=== PATIENT | female | born 1955 | race African-American/Black ===

== ENCOUNTER 2024-08-28 17:39 | Inpatient (IN) | payer OTHER ==
[~2024-08-28] VITALS: Ht 157.5 cm; Wt 85.3 kg
--- NOTE | 2024-08-28 18:04 | ED.PDOC ---
History of Present Illness HPI Comments 68 y/o F, Hx of asthma, CKF, COPD, preDM, HTN, and obesity, is BIBA for c/o shortness of breath, cough, fever, chills, and generalized bodyaches, today. Patient endorses on having difficulty breathing with associated clear phlegm productive cough for the past 2 days, with additional onset of remaining sympto ms, today. Per EMS report, patient was given breathing Tx (5mg albuterol and 0.5mg atrovent) en route, with moderate improvement. At time of arrival to ED and assessment, patient was found with a temperature of 101.0F. Patient reports no additional relevant or pertinent Hx, such as travel, sick contact, or Hx of CHF. She denies having any chest pain, dizziness, headaches, urinary symptoms, hemoptysis, or other associated symptoms or modifiers at this time. 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) Family History Family History: Unknown Social History Smoker: Non-Smoker Alcohol: Denies ETOH Use Drugs: Denies Drug Use Lives In: Home Constitutional: reports: chills, fever; denies: diaphoresis, fatigue, malaise, sweats, weakness, others EENTM: denies: blurred vision, double vision, ear bleeding, ear discharge, ear drainage, ear pain, ear ringing, eye pain, eye redness, hearing loss, mouth pain, mouth swelling, nasal discharge, nose bleeding, nose congestion, nose pain, photophobia, tearing, throat pain, throat swelling, voice changes, others Respiratory: reports: cough, shortness of breath; denies: hemoptysis, orthopnea, SOB at rest, SOB with excertion, stridor, wheezing, others Cardiovascular: denies: chest pain, dizzy spells, diaphoresis, Dyspnea on exertion, edema, irregular heart beat, left arm pain, lightheadedness, palpitations, PND, syncope, others Gastrointestinal: denies: abdomen distended, abdominal pain, blood streaked bowels, constipated, diarrhea, dysphagia, difficulty swallowing, hematemesis, melena, nausea, poor appetite, poor fluid intake, rectal bleeding, rectal pain, vomiting, others Genitourinary: denies: abnormal vagina bleeding, burning, dyspareunia, dysuria, flank pain, frequency, hematuria, incontinence, pain, , vagina discharge, urgency, others Neurological: denies: dizziness, fainting, headache, left sided numbness, left sided weakness, numbness, paresthesia, pre-existing deficit, right sided numbness, right sided weakness, seizure, speech problems, tingling, tremors, weakness, others Musculoskeletal: reports: others (generalized bodyaches ); denies: back pain, gout, joint pain, joint swelling, muscle pain, muscle stiffness, neck pain Integumetry: denies: bruises, change in color, change in hair/nails, dryness, laceration, lesions, lumps, rash, wounds, others Allergic/Immunocompromised: denies: Difficulty Healing, Frequent Infections, Hives, Itching, others Hematologic/Lymphatic: denies: anemia, blood clots, easy bleeding, easy bruising, swollen glands, others Endocrine: denies: excessive hunger, excessive sweating, excessive thirst, excessive urination, flushing, intolerance to cold, intolerance to heat, unexplained weight gain, unexplained weight loss, others Psychiatric: denies: anxiety, bipolar disorder, depression, hopeless, panic disorder, schizophrenia, sleepless, suicidal, others All Other Systems: Reviewed and Negative Physical Exam General Appearance: Moderate Distress HEENT: Normal ENT Inspection, Pharynx Normal, TMs Normal Neck: Full Range of Motion, Non-Tender, Normal, Normal Inspection Respiratory: Chest Non-Tender, Decreased Breath Sounds, No Accessory Muscle Use, Respiratory Distress, Wheezing Cardiovascular: No Edema, No JVD, No Murmur, No Gallop, Normal Peripheral Pulses, Regular Rate/Rhythm Breast Exam: Deferred Gastrointestinal: No Organomegaly, Non Tender, No Pulsatile Mass, Normal Bowel Sounds, Soft Genitalia: Deferred Pelvic: Deferred Rectal: Deferred Extremities: No calf tenderness, Normal capillary refill, Normal inspection, Normal range of motion, Non-tender, No pedal edema Musculoskeletal : Apperance: Normal Neurologic: Alert, hyster machine operator II-XII nml as Tested, No Motor Deficits, Normal Affect, Normal Mood, No Sensory Deficits Cerebellar Function: Normal Reflexes: Normal Skin: Dry, Normal Color, Warm Lymphatic: No Adenopathy Was a procedure done? Was a procedure done?: No EKG EKG : Pulse Rate (adult): 88 Humphreys: Normal Cardiac Rhythm: NSR Block: None Hypertrophy: None ST: Normal Differential Dx Considerations may include: COPD exacerbation, PE, [place], PNA, covid19, influenza, URI, viral syndrome, pleural effusions X-Ray, Labs, Meds, VS Vital Signs Date Time Temp Pulse Resp B/P (MAP) Pulse Ox O2 Delivery O2 Flow Rate FiO2 08/28/24 19:42 98.7 08/28/24 18:42 101.3 08/28/24 18:28 17 98 Nasal Cannula* 6 44 08/28/24 18:05 18 98 Cool Aerosol 8 N/A 08/28/24 18:04 88 08/28/24 17:43 88 08/28/24 17:39 101.0 108 28 140/80 (100) 98 Lab Test 08/28/24 19:15 08/28/24 18:30 08/28/24 18:05 Range/Units Troponin I High Sensitivity Pending 14 </=34 ng/L Influenza Type A Antigen Negative Negative Influenza Type B Antigen Negative Negative SARS-CoV-2 Antigen (Rapid) Negative NEGATIVE White Blood Count 8.2 4.4-10.8 10^3/uL Red Blood Count 4.33 4.0-5.20 10^6/uL Hemoglobin 14.3 12.2-16.2 g/dL Hematocrit 41.6 36.0-46.0 % Mean Corpuscular Volume 96.1 80.0-100.0 fL Mean Corpuscular Hemoglobin 32.9 H 28.0-32.0 pg Mean Corpuscular Hemoglobin Concent 34.2 32.0-36.0 g/dL Red Cell Distribution Width 13.0 11.8-14.3 % Platelet Count 149 140-450 10^3/uL Mean Platelet Volume 8.3 6.9-10.8 fL Neutrophils (%) (Auto) 87.7 H 37.0-80.0 % Lymphocytes (%) (Auto) 5.5 L 10.0-50.0 % Monocytes (%) (Auto) 6.5 0.0-12.0 % Eosinophils (%) (Auto) 0.0 0.0-7.0 % Basophils (%) (Auto) 0.3 0.0-2.0 % Neutrophils # (Auto) 7.1 1.6-8.6 10 ^3/uL Lymphocytes # (Auto) 0.4 0.4-5.4 10 ^3/uL Monocytes # (Auto) 0.5 0-1.3 10 ^3/uL Eosinophils # (Auto) 0 0-0.8 10 ^3/uL Basophils # (Auto) 0 0-0.2 10 ^3/uL Nucleated Red Blood Cells 0.0 % Sodium Level 133 L 136-145 mmol/L Potassium Level 4.2 3.5-5.1 mmol/L Chloride Level 100 98-107 mmol/L Carbon Dioxide Level 28 20-31 mmol/L Anion Gap 5 5-15 Blood Urea Nitrogen 10 9-23 mg/dL Creatinine 0.85 0.550-1.02 mg/dL Glomerular Filtration Rate Calc 75 >90 mL/min BUN/Creatinine Ratio 11.8 10.0-20.0 Serum Glucose 187 H 74-106 mg/dL Lactic Acid Level 1.7 0.4-2.0 mmol/L Calcium Level 9.8 8.7-10.4 mg/dL B-Type Natriuretic Peptide 58.63 0-100 pg/mL Current Medications Medications (Trade) Dose Ordered Sig/Cathy Route Start Time Stop Time Status Last Admin Methylprednisolone Sodium Succinate (Solu Medrol) 125 mg ONCE ONCE IV 08/28/24 18:00 08/28/24 18:01 TN 08/28/24 18:25 Ipratropium [place] (Atrovent Medneb) 1 mg ONCE ONCE N 08/28/24 18:00 08/28/24 18:01 TN 08/28/24 18:05 Albuterol (Ventolin Medneb) 10 mg ONCE ONCE N 08/28/24 18:00 08/28/24 18:01 TN 08/28/24 18:05 Acetaminophen (Tylenol Tablet) 650 mg ONCE ONCE PO 08/28/24 18:45 08/28/24 18:46 TN 08/28/24 18:42 IV Hep-Lock was established. The patient was given Solu-Medrol 125 mg IV push The patient was given a continuous breathing treatment of albuterol and Atrovent The patient was given acetaminophen 650 mg by mouth The patient's CBC and chemistry panel are within normal limits The influenza a is negative The influenza B is negative The COVID test is negative The 1st troponin level is negative The patient continues to have some respiratory distress We are going to admit the patient with a diagnosis of acute COPD exacerbation and respiratory failure We will continue to monitor the patient's respiratory status and give med ne bulizers as needed. The patient will remain on nasal cannula as the oxygen saturation is only 98% as the patient is on the nasal cannula Images Reviewed?: Images reviewed and evaluated by me Time of 1ST Reevaluation: 18:20 Reevaluation 1ST: Unchanged Patient Education/Counseling: Diagnosis, Treatment, Prognosis Family Education/Counseling: No Family Present Departure 1 Departure Time of Disposition: 19:58 Impression: Primary Impression: Acute respiratory failure Qualified Codes: J96.01 - Acute respiratory failure with hypoxia Additional Impression: COPD exacerbation Disposition: 09 ADMITTED INPATIENT Admit to: [facility] Condition: Fair Critical Care Note Critical Care Time?: Yes (45 min-critical care time only) Stability Stability form required: Yes Unstable for transfer: Telemetry monitoring (Telemetry monitoring required), ED Physician Assesment (Clinical assesment) Heart Score Heart Score: Heart Score Response (Comments) Value History Moderate Suspicious 1 EKG Normal 0 Age >65 2 Risk Factors >3 or Hx ASHD 2 Troponin Normal limit 0 Total 5 I personally scribed for NICCI REESE MD ([email or web address]) on 08/28/24 at 18:04. Electronically submitted by Raf Deras ([email or web address]). NICCI REESE MD Aug 28, 2024 18:04
[2024-08-28] MEDS: ALBUTEROL SULF 2.5 MG/0.5ML(0.5%) NEB SOLN HHN ONE (18:05)
[2024-08-28] MEDS: IPRATROPIUM BROM 0.5 MG/2.5ML INH SOL HHN ONE (18:05)
[2024-08-28] MEDS: methylPREDNISolone SOD SUCC 125 MG/2 ML VL IV ONE (18:25)
[2024-08-28 18:28] VITALS: RESP 17; O2SAT 98
[2024-08-28 18:32] LABS: Basophils # (auto) 0 10 ^3/uL (0-0.2); Basophils % (auto) 0.3 % (0.0-2.0); Eosinophils # (auto) 0 10 ^3/uL (0-0.8); Hematocrit 41.6 % (36.0-46.0); Hemoglobin 14.3 g/dL (12.2-16.2); Lymphocytes # (auto) 0.4 10 ^3/uL (0.4-5.4); Lymphocytes % (auto) 5.5 % (10.0-50.0); Mean Corpuscular Hemoglobin 32.9 pg (28.0-32.0); Mean Corpuscular Hgb Conc. 34.2 g/dL (32.0-36.0); Mean Corpuscular Volume 96.1 fL (80.0-100.0); Monocytes # (auto) 0.5 10 ^3/uL (0-1.3); Monocytes % (auto) 6.5 % (0.0-12.0); Neutrophils # (auto) 7.1 10 ^3/uL (1.6-8.6); Neutrophils % (auto) 87.7 % (37.0-80.0); Platelet Count (auto) 149 10^3/uL (140-450); Red Blood Cells 4.33 10^6/uL (4.0-5.20); White Blood Cell 8.2 10^3/uL (4.4-10.8)
[2024-08-28 18:42] LABS: Anion Gap 5 (5-15); Carbon Dioxide 28 mmol/L (20-31); Chloride 100 mmol/L (98-107); Potassium 4.2 mmol/L (3.5-5.1)
[2024-08-28] MEDS: ACETAMINOPHEN 325 MG TAB PO ONE (18:42)
[2024-08-28 18:43] LABS: Calcium 9.8 mg/dL (8.7-10.4)
[2024-08-28 18:48] LABS: BUN/Creatinine Ratio 11.8 (10.0-20.0); Blood Urea Nitrogen 10 mg/dL (9-23)
[2024-08-28 18:58] LABS: Glucose 187 mg/dL (74-106); Sodium 133 mmol/L (136-145)
--- NOTE | 2024-08-28 19:11 | ECG ---
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
[2024-08-28 19:12] LABS: Rapid Influenza A Negative (Negative); Rapid Influenza B Negative (Negative)
[2024-08-28 19:13] LABS: COVID19 ANTIGEN SOFIA FIA NEGATIVE (NEGATIVE)
--- NOTE | 2024-08-28 19:53 | DVH ---
EXAMINATION: AP portable chest radiograph CLINICAL HISTORY: sob COMPARISON: None TECHNIQUE: Single view of the chest FINDINGS: Mildly prominent interstitial markings are noted in the right base and to a lesser degree in the left base. Findings may represent acute infiltrate or chronic disease. There are no prior studies for com parison IMPRESSION: 1. Mildly prominent interstitial markings both bases right worse than left. There are no prior studie s to help distinguish acute versus chronic disease.
[2024-08-28 20:29] LABS: Urine Bacteria None Seen /hpf (None Seen)
[2024-08-28 20:48] LABS: Urine Blood 1+ /uL (Negative); Urine Clarity Clear (Clear); Urine Color Yellow (Yellow); Urine Protein, UAD 3+ (Negative); Urine Specific Gravity 1.012 (1.001-1.035); Urine Squamous Epithelial Cell FEW /hpf (<5); Urine Urobilinogen Normal (Negative); Urine WBC 10 /hpf (0 - 5); Urine pH 6.5 (5.0-9.0)
[2024-08-28 21:20] VITALS: PULSE 83; RESP 25
[2024-08-28] MEDS ORDERED: NITROGLYCERIN 0.4 MG SL TAB SL PRN (21:30)
[2024-08-28] MEDS ORDERED: MORPHINE SULFATE INJ 2 MG/ml SYRG IV PRN (21:30)
[2024-08-28 21:43] VITALS: BP 115/63; PULSE 83; RESP 25; TEMP 98.4; O2SAT 98
[2024-08-28] MEDS ORDERED: DEXTROSE (50%) 50ML SYRG IV PRN (21:45)
[2024-08-28 21:46] VITALS: O2SAT 94
[2024-08-28] MEDS: AZITHROMYCIN 500MG/ 250ML 250 ML IV ONE (21:49)
[2024-08-28] MEDS: InsuLIN REG 1unit/0.01ml Soln (100units/ml) SC SCH (22:00)
[2024-08-28] MEDS: ACCU-CHEK COMFORT CURVE STRIP VI SCH (22:00)
[2024-08-28] MEDS: SODIUM CHLORIDE 0.9% 1,000 ML IV ONE (22:30)
[2024-08-28] MEDS: methylPREDNISolone SOD SUCC 125 MG/2 ML VL IV SCH (22:48)
[2024-08-28 23:23] VITALS: PULSE 85; RESP 20; O2SAT 95
[2024-08-29] VITALS (20 sets, daily range): BP systolic 111–136; BP diastolic 44–79; PULSE 61–105; RESP 16–22; TEMP 97.7–98.4; O2SAT 90–99
[2024-08-29] MEDS: IPRATROPIUM BROM 0.5 MG/2.5ML INH SOL NEB SCH ×2 (00:14→14:57)
[2024-08-29] MEDS: ALBUTEROL SULF 2.5 MG/0.5ML(0.5%) NEB SOLN NEB SCH ×2 (00:14→14:55)
[2024-08-29] MEDS: levoFLOXacin 500MG 100 ML IV SCH (01:28)
[2024-08-29] MEDS: diphenhdrAMINE HCL 25 MG CAP PO ONE (03:36)
[2024-08-29] MEDS ORDERED: ALBU0.084 NEB (03:54)
[2024-08-29] MEDS ORDERED: METO-289 PO (03:54)
[2024-08-29] MEDS ORDERED: ALBUAER3 IN (03:54)
[2024-08-29] MEDS ORDERED: LOSA-534 PO (03:54)
[2024-08-29 07:03] LABS: Basophils # (auto) 0 10 ^3/uL (0-0.2); Basophils % (auto) 0.1 % (0.0-2.0); Eosinophils # (auto) 0 10 ^3/uL (0-0.8); Hematocrit 39.9 % (36.0-46.0); Lymphocytes # (auto) 0.3 10 ^3/uL (0.4-5.4); Lymphocytes % (auto) 4.6 % (10.0-50.0); Mean Corpuscular Hemoglobin 33.7 pg (28.0-32.0); Mean Corpuscular Volume 96.1 fL (80.0-100.0); Monocytes # (auto) 0.1 10 ^3/uL (0-1.3); Monocytes % (auto) 1.7 % (0.0-12.0); Neutrophils # (auto) 5.5 10 ^3/uL (1.6-8.6); Neutrophils % (auto) 93.6 % (37.0-80.0); Nucleated Red Blood Cells % 0.1 %; Platelet Count (auto) 143 10^3/uL (140-450); Red Blood Cells 4.16 10^6/uL (4.0-5.20); Red Cell Distribution Width 13.1 % (11.8-14.3); White Blood Cell 5.9 10^3/uL (4.4-10.8)
[2024-08-29 07:17] LABS: Alanine Aminotransferase 16 U/L (7-40); Albumin 4.4 g/dL (3.2-4.8); Alkaline Phosphatase 74 U/L (46-116); Anion Gap 7 (5-15); Aspartate Aminotransferase 24 U/L (13-40); BUN/Creatinine Ratio 14.5 (10.0-20.0); Bilirubin, Total 0.5 mg/dL (0.2-1.0); Blood Urea Nitrogen 10 mg/dL (9-23); Calcium 10.1 mg/dL (8.7-10.4); Carbon Dioxide 27 mmol/L (20-31); Chloride 103 mmol/L (98-107); Potassium 4.4 mmol/L (3.5-5.1); Sodium 137 mmol/L (136-145); Total Protein 7.1 g/dL (5.7-8.2)
[2024-08-29 07:18] LABS: Glucose 208 mg/dL (74-106)
[2024-08-29] MEDS ORDERED: LEVO500T91 PO (07:29)
[2024-08-29 07:59] LABS: Base Excess -1.9 mmol/L (-2.0-3.0)
[2024-08-29] MEDS ORDERED: DEXT1SYP9 PO (08:23)
[2024-08-29] MEDS: guaiFENesin-DM 100/10mg/5ml SYR PO PRN (08:55)
--- NOTE | 2024-08-29 11:01 | DVH ---
EXAM: CT CHEST WITHOUT CONTRAST HISTORY: pna COMPARISON: Radiograph dated 08/28/2024 TECHNIQUE: Axial images were obtained and reformatted in coronal and sagittal planes. All CT scans at this medical facility are performed using dose modulation techniques as appropriate to a performed exam including the following: Automated exposure control was utilized; adjustment of the MA and/or K V according to patient size; and use of iterative reconstruction technique. CT Dose: CTDI volume is 15.72 mGy. Dose-length product is 562.2 mGy*cm FINDINGS: Lower neck: Unremarkable. Cardiomediastinal: The heart is normal in size. No pericardial effusion. Aorta is normal in caliber calcified plaque formation of the arch. Lungs: Unremarkable. No focal pulmonary opacity. No pleural effusion or pneumothorax. No suspicious pulmonary nodule masses. Bones and Soft Tissues: No acute abnormality. Multilevel degenerative disc disease of the thoracic s pine. Upper Abdomen: Numerous subcentimeter nonobstructing calculi are seen in visualized bilateral upper kidneys. Gallbladder is surgically absent. Other: None. IMPRESSION: 1. No acute cardiopulmonary disease. No evidence of pneumonia. 2. Subcentimeter nonobstructive bilateral renal calculi.
[2024-08-29] MEDS ORDERED: IPRATROPIUM BROM 0.5 MG/2.5ML INH SOL NEB SCH (11:30)
[2024-08-29] MEDS ORDERED: ALBUTEROL SULF 2.5 MG/0.5ML(0.5%) NEB SOLN NEB SCH (11:30)
[2024-08-29] MEDS: ALBUTEROL SULF 2.5 MG/0.5ML(0.5%) NEB SOLN ONE (12:17)
[2024-08-29] MEDS: IPRATROPIUM BROM 0.5 MG/2.5ML INH SOL ONE (12:17)
[2024-08-29] MEDS: IPRATROPIUM BROM 0.5 MG/2.5ML INH SOL NEB ONE (12:24)
[2024-08-29] MEDS: ALBUTEROL SULF 2.5 MG/0.5ML(0.5%) NEB SOLN NEB ONE (12:25)
--- NOTE | 2024-08-29 13:25 | DVHHP2 ---
Admitting Diagnosis: Hypoxia due to PNA History of Present Illness HPI 68 y.o. female with COPD/asthma, DM, HTN, obesity c/o body ache, chills, fever, shortness of breath with productive cough for the past 3 days. On arrival she had temperature 101, was hypoxic and required 6L of oxygen. Her Influenza and Covid tests were negative. CXR showed possible pneumonitis. Home Meds Active Scripts Dextromethorphan-Guaifenesin (Robitussin-Dm) 10 Ml Sr, 10 ML PO Q4HP PRN for 30 Days, #1 SYP Prov:PELON ROMO MD 08/29/24 Levofloxacin Hemihydrate (LEVAQUIN 500 MG) 500 Mg Tab, 500 MG PO DAILY for 10 Days, #10 TAB Prov:PELON ROMO MD 08/29/24 Reported Medications Albuterol Sulfate (Albuterol Sulfate) 0.083 % Neb, 1 VIAL NEB Q4HPRN, #50 VIAL 08/29/24 Albuterol Sulfate (VENTOLIN MDI) 90 Mcg Ih, 90 MCG IN, INH 08/29/24 Losartan Potassium (Losartan Potassium) 50 Mg Tab, 1 TAB PO DAILY, #30 TAB 5 Refills 08/29/24 Metoprolol Succinate (Metoprolol Succinate Er) 50 Mg Tab, 1 TAB PO DAILY, #30 TAB 5 Refills 08/29/24 Past Medical History Cardiac: HTN Pulmonary: Asthma, COPD Endocrine: NIDDM Patient Family History: Diabetes mellitus G8 FATHER, Hypertension G8 MOTHER, G8 FATHER, Review of Systems Constitutional: Diaphoresis, Fever, Malaise Pulmonary/Respiratory: Dyspnea, Cough H&P Exam Vital Signs Vital Signs Date Time Temp Pulse Resp B/P (MAP) Pulse Ox O2 Delivery O2 Flow Rate FiO2 08/29/24 13:02 97.9 77 16 118/79 (92) 91 97.9 08/29/24 10:00 Room Air* 0 21 General Appeara: Obese Head Exam: Normal inspection Neck Exam: Normal inspection Eye Exam: bilateral eye PERRL, bilateral eye EOMI Pulmonary/Respiratory: Crackles Cardiovascular/Chest: Tachycardia Abdominal Exam: Soft Neuro/Mental St: Alert, Oriented Labs/Xrays Labs Test 08/29/24 07:53 08/29/24 05:52 08/29/24 05:48 08/28/24 21:45 Range/Units Blood Gas Specimen Type Arterial Blood Gas Sample Site Right radial Blood Gas Patient Temperature 37.0 Arterial Blood Date Drawn [id number] Arterial Blood pH 7.353 7.350-7.450 Arterial Blood Partial Pressure CO2 43.8 32.0-45.0 mmHg Arterial Blood Partial Pressure O2 48.6 *L 83.0-108.0 mmHg Arterial Blood HCO3 23.8 21.0-28.0 mmol/L Arterial Blood Oxygen Saturation 80.2 *L 94.0-98.0 % Arterial Blood Base Excess -1.9 -2.0-3.0 mmol/L Arterial Blood Oxyhemoglobin 79.0 L 94.0-98.0 % Arterial Blood Carboxyhemoglobin 1.2 0.5-1.5 % Arterial Blood Methemoglobin 0.3 0.0-1.5 % Yon Test Yes Blood Gas Total Hemoglobin 14.10 12.0-16.0 g/dL Blood Gas Modality Room air FiO2 % 21.0 Blood Gas Critical Value Read Back Yes Blood Gas Notified Whom Dr daly Blood Gas Notified Time [id number] Blood Gas Notified By Signal Operator Linguist faiza White Blood Count 5.9 # 4.4-10.8 10^3/uL Red Blood Count 4.16 4.0-5.20 10^6/uL Hemoglobin 14.0 12.2-16.2 g/dL Hematocrit 39.9 36.0-46.0 % Mean Corpuscular Volume 96.1 80.0-100.0 fL Mean Corpuscular Hemoglobin 33.7 H 28.0-32.0 pg Mean Corpuscular Hemoglobin Concent 35.0 32.0-36.0 g/dL Red Cell Distribution Width 13.1 11.8-14.3 % Platelet Count 143 140-450 10^3/uL Mean Platelet Volume 8.6 6.9-10.8 fL Neutrophils (%) (Auto) 93.6 H 37.0-80.0 % Lymphocytes (%) (Auto) 4.6 L 10.0-50.0 % Monocytes (%) (Auto) 1.7 0.0-12.0 % Eosinophils (%) (Auto) 0.0 0.0-7.0 % Basophils (%) (Auto) 0.1 0.0-2.0 % Neutrophils # (Auto) 5.5 1.6-8.6 10 ^3/uL Lymphocytes # (Auto) 0.3 L 0.4-5.4 10 ^3/uL Monocytes # (Auto) 0.1 0-1.3 10 ^3/uL Eosinophils # (Auto) 0 0-0.8 10 ^3/uL Basophils # (Auto) 0 0-0.2 10 ^3/uL Nucleated Red Blood Cells 0.1 % Sodium Level 137 136-145 mmol/L Potassium Level 4.4 3.5-5.1 mmol/L Chloride Level 103 98-107 mmol/L Carbon Dioxide Level 27 20-31 mmol/L Anion Gap 7 5-15 Blood Urea Nitrogen 10 9-23 mg/dL Creatinine 0.69 0.550-1.02 mg/dL Glomerular Filtration Rate Calc 94 >90 mL/min BUN/Creatinine Ratio 14.5 10.0-20.0 Serum Glucose 208 H 74-106 mg/dL Calcium Level 10.1 8.7-10.4 mg/dL Total Bilirubin 0.5 0.2-1.0 mg/dL Aspartate Amino Transferase (AST) 24 13-40 U/L Alanine Aminotransferase (ALT) 16 7-40 U/L Alkaline Phosphatase 74 46-116 U/L Total Protein 7.1 5.7-8.2 g/dL Albumin 4.4 3.2-4.8 g/dL POC Glucose 214 H 70-106 mg/dl Troponin I High Sensitivity 31 </=34 ng/L Test 08/28/24 18:30 08/28/24 18:29 08/28/24 18:05 Range/Units Influenza Type A Antigen Negative Negative Influenza Type B Antigen Negative Negative SARS-CoV-2 Antigen (Rapid) Negative NEGATIVE Urine Color Yellow Yellow Urine Clarity Clear Clear Urine pH 6.5 5.0-9.0 Urine Specific [place] 1.012 1.001-1.035 Urine Protein 3+ H Negative Urine Ketones Negative Negative Urine Blood 1+ H Negative /uL Urine Nitrite Negative Negative Urine Bilirubin Negative Negative Urine Urobilinogen Normal Negative mg/dL Urine Leukocyte Esterase Negative Negative /uL Urine RBC 1 0 - 4 /hpf Urine WBC 10 0 - 5 /hpf Urine Squamous Epithelial Cells Few <5 /hpf Urine Bacteria None seen None Seen /hpf Urine Glucose 1+ H Normal mg/dL Lactic Acid Level 1.7 0.4-2.0 mmol/L B-Type Natriuretic Peptide 58.63 0-100 pg/mL Assessment/Plan Problem List: (1) COPD exacerbation (2) Acute respiratory failure Plan Oxygen, RT, Steroids Plan discussed with: Patient REENA GORDON MD Aug 29, 2024 13:25
[2024-08-29] MEDS ORDERED: guaiFENesin 200 MG/10 ML UD PO PRN (13:30)
[2024-08-29] MEDS ORDERED: METH4PAK PO (15:11)
[2024-08-29] MEDS ORDERED: ALBU108A5 IN (15:11)
[2024-08-29] MEDS: guaiFENesin 200 MG/10 ML UD PO PRN (15:57)
[2024-08-30] VITALS (21 sets, daily range): BP systolic 106–131; BP diastolic 55–74; PULSE 58–113; RESP 18–24; TEMP 97.8–98.8; O2SAT 91–100
[2024-08-30] MEDS: IPRATROPIUM BROM 0.5 MG/2.5ML INH SOL NEB SCH (01:49)
[2024-08-30] MEDS: ALBUTEROL SULF 2.5 MG/0.5ML(0.5%) NEB SOLN NEB SCH (01:49)
[2024-08-30] MEDS: guaiFENesin 200 MG/10 ML UD PO PRN (02:18)
--- NOTE | 2024-08-30 07:20 | DVHDS2 ---
New Physician D'charge PN Admitting Diagnosis Admitting Diagnosis sob Discharge Diagnosis URI, viral respiratory failure on o2 Operations or Procedures none Reason(s) For Hospitalization Surgery Hospital Course 68 F who comes to ER for SOB and fever, States she has been feeling ill since the last few days. She was placed on NC at 3L o2 and her ABG on RA revealed a po2 of 48 thus she was in respiratory failure. She was admitted and started on IV ABx, steroids and around the clock nebs, Her CT chest showed no acute findings. BCx were negative. CBC and chemistry were also nml. Her condition improved with treatment and now she remains on 3L o2 with sats >90%. She will be discharged home with home o2 and PO Abx, steroids and albuterol inhaler for tx of URI likely viral in nature and COPD. [facility] to arrange for home o2 and all outpt follow up. Scripts for new prescriptions sent to the patients pharmacy on file. Treatment Plan Discharge Condition of Discharge Good Disposition Home with Health Services Discharge Instructions Diet: Cardiac 2g Na,low cholest Activity: No Restrictions, As Tolerated Medications: see med sheet Follow Up Care Follow Up/Referral: pcp Discharge Statement: "Patient was advised to return to the ER or call 911 if any headaches, dizziness, shortness of breath, chest pain, abdominal pain, bleeding, fevers, or worsening of medical condition. Patient was counseled about treatment plan, medications, possible side effects, patientverbalized understanding. All questions were answered to the best of my ability. This discharge took greater then 30 minutes in planning, reviewing documentation, counseling the patient, and discussing with other team members." PELON ROMO MD Aug 30, 2024 07:20
[2024-08-30] MEDS: ACETAMINOPHEN 325 MG TAB PO PRN (22:02)
[2024-08-31] VITALS (16 sets, daily range): BP systolic 98–134; BP diastolic 68–86; PULSE 79–105; RESP 16–22; TEMP 98–99; O2SAT 91–100
[2024-08-31] MEDS ORDERED: ALBUTEROL SULF 2.5 MG/0.5ML(0.5%) NEB SOLN NEB SCH (01:00)
[2024-08-31] MEDS ORDERED: IPRATROPIUM BROM 0.5 MG/2.5ML INH SOL NEB SCH (01:00)
[2024-08-31] MEDS ORDERED: ALBUTEROL SULF 2.5 MG/0.5ML(0.5%) NEB SOLN NEB PRN (01:15)
[2024-08-31] MEDS: IPRATROPIUM BROM 0.5 MG/2.5ML INH SOL NEB SCH (01:22)
[2024-08-31] MEDS: ALBUTEROL SULF 2.5 MG/0.5ML(0.5%) NEB SOLN NEB SCH (01:22)
[2024-08-31] MEDS: ALBUTEROL SULF 2.5 MG/0.5ML(0.5%) NEB SOLN ONE ×2 (06:43→15:00)
[2024-08-31] MEDS: IPRATROPIUM BROM 0.5 MG/2.5ML INH SOL ONE ×2 (06:43→15:00)
== END 2024-08-31 19:05 | disposition home or self-care (01) | DRG 189 ==
LOC: EDBD 17:39 → ER 17:44 → TELE 21:27 → TELE-E-ADS 23:23
PROVIDERS: ADMIT Internal Medicine; ATTEND Internal Medicine
DX: J96.01 Acute respiratory failure with hypoxia (principal); J44.1 Chronic obstructive pulmonary disease with (acute) exacerbation; J06.9 Acute upper respiratory infection, unspecified; E11.9 Type 2 diabetes mellitus without complications; Z20.822 Contact with and (suspected) exposure to COVID-19; I10 Essential (primary) hypertension; E66.9 Obesity, unspecified; Z90.49 Acquired absence of other specified parts of digestive tract; Z98.891 History of uterine scar from previous surgery; Z79.84 Long term (current) use of oral hypoglycemic drugs; Z79.899 Other long term (current) drug therapy; Z68.34 Body mass index [BMI] 34.0-34.9, adult
CPT/HCPCS: 36415; 36600; 71045; 71250; 80048; 80053; 81001; 82805; 82962; 83605; 83880; 84484; 85025; 87040; 87426; 87804; 93005; 94640; 99291; G0378; J1815; J1956